=== PATIENT | male | born 1985 | race Caucasian/White ===

== ENCOUNTER 2018-03-17 04:55 | Emergency (ER) | payer OTHER ==
[~2018-03-17] VITALS: Ht 188 cm; Wt 113.4 kg
--- NOTE | 2018-03-17 05:07 | ED GI/GU/ABDOMINAL COMPLAINT ---
History of Present Illness General Chief Complaint: Abdominal Pain/Flank Pain Stated Complaint: ABD PAIN Source: patient Exam Limitations: no limitations Vital Signs & Intake/Output Vital Signs & Intake/Output Vital Signs Date Time Temp Pulse Resp B/P B/P Pulse O2 O2 Flow FiO2 Mean Ox Delivery Rate 03/17 0511 97.8 77 18 169/80 97 Room Air Allergies Coded Allergies: No Known Allergies (03/17/18) Reconcile Medications Omeprazole Magnesium (Prilosec Otc) 20 MG TABLET.DR 1 TAB PO DAILY STOMACH BURNING Ondansetron (Zofran Odt) 4 MG TAB.RAPDIS 1 TAB SL TID PRN NAUSEA Triage Nurses Notes Reviewed? yes Duration: day(s): Timing: recent history Quality/Severity: burning, cramping Location: epigastric Radiation: no radiation Modifying Factors: Worsens With: palpation. Associated Symptoms: abdominal pain HPI: 32 yo gentleman presents with diffuse mid epigastric tenderness x 1 day. He was evaluated yesterday at [facility] [place] [place], had benign lab work and a negative abd ultrasound. He notes, "That was when I had pain in my lower back... but now I have pain in my abdomen." He notes burning and cramping type pain in his mid epigastrum, mild nausea, without vomiting. He has had normal bowel movements. Past History Medical History Any Pertinent Medical History? none Surgical History Surgical History: none Psychosocial History What is your primary language Sinhala Family History Hx Contributory? No Review of Systems Review of Systems Constitutional: Reports: no symptoms. EENTM: Reports: no symptoms. Respiratory: Reports: no symptoms. Cardiovascular: Reports: no symptoms. GI: Reports: no symptoms. Genitourinary: Reports: no symptoms. Musculoskeletal: Reports: no symptoms. Skin: Reports: no symptoms. Neurological/Psychological: Reports: no symptoms. Hematologic/Endocrine: Reports: no symptoms. Immunologic/Allergic: Reports: no symptoms. All Other Systems: Reviewed and Negative Physical Exam Physical Exam General Appearance: well developed/nourished, mild distress Head: atraumatic, normal appearance Eyes: Bilateral: normal appearance. Ears, Nose, Throat, Mouth: hearing grossly normal, moist mucous membrane Neck: normal inspection, supple, full range of motion Respiratory: normal breath sounds, chest non-tender, no respiratory distress, quiet respiration, lungs clear Cardiovascular: regular rate/rhythm Gastrointestinal: normal bowel sounds, soft, mid epigastric tenderness to palpation. no rebound. no guarding. Back: normal inspection Extremities: normal range of motion Neurologic/Psych: no motor/sensory deficits, awake, alert, oriented x 3 Skin: intact, normal color, warm/dry Core Measures ACS in differential dx? No Sepsis Present: No Sepsis Focused Exam Completed? No Progress Differential Diagnosis: gastritis, hepatitis Plan of Care: Orders Procedure Date/time Status LIPASE 03/17 507 Complete HEPATIC FUNCTION PANEL 03/17 507 Complete CBC WITHOUT DIFFERENTIAL 03/17 507 Complete BASIC METABOLIC PANEL 03/17 507 Complete AMYLASE 03/17 507 Complete Laboratory Tests 03/17/18 0527: Anion Gap 12, Estimated GFR > 60, BUN/Creatinine Ratio 15.6, Glucose 110 H, Calcium 10.2, Total Bilirubin 0.5, Direct Bilirubin 0.4, AST 33, ALT 51, Alkaline Phosphatase 46, Total Protein 7.2, Albumin 4.4, Amylase 44, Lipase 57 03/17/18 0520: CBC w Diff NO MAN DIFF REQ, RBC 5.42, MCV 91.2, MCH 30.9, MCHC 33.9, RDW 13.2, MPV 8.9, Gran % 51.9, Lymphocytes % 34.3, Monocytes % 10.3 H, Eosinophils % 3.2 , Basophils % 0.3, Absolute Granulocytes 2.8, Absolute Lymphocytes 1.8, Absolute Monocytes 0.6, Absolute Eosinophils 0.2, Absolute Basophils 0 Diagnostic Imaging: Viewed by Me: CT Scan. Discussed w/RAD: CT Scan. Radiology Impression: PATIENT: JUAN MIGUEL REDD JR PRESENT AGE: 32 PATIENT ACCOUNT NO: [id number] : 86 LOCATION: [facility] ORDERING PHYSICIAN: Kristopher Hoyos MD SERVICE DATE: 03/17/18 EXAM TYPE: CAT - CT ABD & PELVIS W/O IV CONTRAS EXAMINATION: CT ABDOMEN AND PELVIS WITHOUT CONTRAST CLINICAL INFORMATION: Mid epigastric abdominal pain, back pain COMPARISON: None TECHNIQUE: Multidetector volumetric imaging was performed from the superior aspect of the liver through the pubic symphysis. Sagittal and coronal reformatted images were obtained on the technologist's workstation. DLP: 884 mGy-cm FINDINGS: LUNG BASES: The visualized lung bases are unremarkable. LIVER, GALLBLADDER, AND BILIARY TREE: The liver is normal in size, shape, and attenuation. No focal hepatic lesion or biliary ductal dilatation is present. The gallbladder is unremarkable with no evidence of radiopaque gallstones, gallbladder wall thickening, or obvious pericholecystic inflammatory changes. PANCREAS: Unremarkable. SPLEEN: Unremarkable. ADRENAL GLANDS: Unremarkable. KIDNEYS AND URETERS: The kidneys are normal in size, shape, and attenuation. No hydronephrosis, hydroureter, or calculi seen. No perinephric stranding. BLADDER: Unremarkable. GASTROINTESTINAL TRACT: The small and large bowel are unremarkable. The appendix is unremarkable. ABDOMINAL WALL: No significant hernia is appreciated. LYMPH NODES: Normal. VASCULAR: There is mild calcification along the common iliac arteries. PELVIC VISCERA: Unremarkable. OSSEOUS STRUCTURES: Unremarkable. IMPRESSION: No acute findings identified in the abdomen/pelvis. DICTATED BY: Que Mccain MD DATE/TIME DICTATED:03/17/18627 COMPUTER SPECIALIST:ROBERTO DATE/TIME TRANSCRIBED:03/17/18627 CONFIDENTIAL, DO NOT COPY WITHOUT APPROPRIATE AUTHORIZATION. <Electronically signed in Other Vendor System> SIGNED BY: Que Mccain MD 03/17/18637 Initial ED EKG: none Departure Departure Disposition: HOME OR SELF CARE Condition: Stable Clinical Impression Primary Impression: Abdominal pain Referrals: Patient Has No Primary Care Dr (PCP/Family) Departure Forms: Customer Survey General Discharge Information Prescriptions: Current Visit Scripts Omeprazole Magnesium (Prilosec Otc) 1 TAB PO DAILY #30 TAB Ondansetron (Zofran Odt) 1 TAB SL TID PRN NAUSEA #10 TAB Comments 03/17/18, 6:54AM... pt with benign labs and ct scan .... feels somewhat better after supportive measures... pt safe for discharge, give rx for supportive meds... close follow up advised.
[2018-03-17 05:34] LABS: ABSOLUTE BASOPHIL COUNT 0 /CUMM (0.0-0.2); ABSOLUTE EOSINOPHIL COUNT 0.2 /CUMM (0.0-0.7); ABSOLUTE GRANULOCYTE CT 2.8 /CUMM (1.4-6.5); ABSOLUTE LYMPH COUNT 1.8 /CUMM (1.2-3.4); ABSOLUTE MONOCYTE COUNT 0.6 /CUMM (0.10-0.60); BASOPHIL % 0.3 % (0.0-2.0); EOSINOPHIL % 3.2 % (0-5); GRANULOCYTE % 51.9 % (42.2-75.2); HEMATOCRIT 49.4 % (42-52); MEAN CORPUSCULAR HGB 30.9 PG (27.0-31.0); MEAN CORPUSCULAR HGB CONC 33.9 G/DL (33.0-37.0); MEAN CORPUSCULAR VOLUME 91.2 FL (80.0-94.0); MEAN PLATELET VOLUME 8.9 FL (7.4-10.4); PLATELET COUNT 229 /CUMM (130-400); RBC DISTRIBUTION WIDTH 13.2 % (11.5-14.5); RED BLOOD CELL CT 5.42 /CUMM (4.70-6.10); WHITE BLOOD CELL COUNT 5.4 /CUMM (4.8-10.8)
--- NOTE | 2018-03-17 06:38 | CT SCAN REPORT ---
EXAMINATION: CT ABDOMEN AND PELVIS WITHOUT CONTRAST CLINICAL INFORMATION: Mid epigastric abdominal pain, back pain COMPARISON: None TECHNIQUE: Multidetector volumetric imaging was performed from the superior aspect of the liver through the pubic symphysis. Sagittal and coronal reformatted images were obtained on the technologist's workstation. DLP: 884 mGy-cm FINDINGS: LUNG BASES: The visualized lung bases are unremarkable. LIVER, GALLBLADDER, AND BILIARY TREE: The liver is normal in size, shape, and attenuation. No focal hepatic lesion or biliary ductal dilatation is present. The gallbladder is unremarkable with no evidence of radiopaque gallstones, gallbladder wall thickening, or obvious pericholecystic inflammatory changes. PANCREAS: Unremarkable. SPLEEN: Unremarkable. ADRENAL GLANDS: Unremarkable. KIDNEYS AND URETERS: The kidneys are normal in size, shape, and attenuation. No hydronephrosis, hydroureter, or calculi seen. No perinephric stranding. BLADDER: Unremarkable. GASTROINTESTINAL TRACT: The small and large bowel are unremarkable. The appendix is unremarkable. ABDOMINAL WALL: No significant hernia is appreciated. LYMPH NODES: Normal. VASCULAR: There is mild calcification along the common iliac arteries. PELVIC VISCERA: Unremarkable. OSSEOUS STRUCTURES: Unremarkable. IMPRESSION: No acute findings identified in the abdomen/pelvis.
[2018-03-17] MEDS ORDERED: ZOFRAN ODT4 M1 SL (06:50)
[2018-03-17] MEDS ORDERED: PRILOSEC OTC20 M1 PO (06:50)
[2018-03-17 06:57] VITALS: BP 124/76
== END 2018-03-17 06:58 ==
LOC: ERH 04:55
PROVIDERS: Pediatrics
DX: R10.13 Epigastric pain (principal)
CPT/HCPCS: 74176; 96374; 96375; J1885; J2405